=== PATIENT | male | born 1950 | race Caucasian/White ===

== ENCOUNTER → 2017-03-17 | Outpatient (CLI) | payer OTHER, MEDICARE | LOC: FIMAGING 08:00 | PROVIDERS: ATTEND Physician Assistant | DX: M51.36 Other intervertebral disc degeneration, lumbar region (principal); M12.88 Other specific arthropathies, not elsewhere classified, other specified site; M99.73 Connective tissue and disc stenosis of intervertebral foramina of lumbar region; M48.061 Spinal stenosis, lumbar region without neurogenic claudication; M51.26 Other intervertebral disc displacement, lumbar region; M48.02 Spinal stenosis, cervical region; M99.71 Connective tissue and disc stenosis of intervertebral foramina of cervical region; M89.38 Hypertrophy of bone, other site; M54.15 Radiculopathy, thoracolumbar region ==

== ENCOUNTER 2017-05-03 10:34 | Emergency (ER) | payer OTHER, MEDICARE ==
[2017-05-03 10:39] VITALS: RESP 18; TEMP 97.5; O2SAT 97
[2017-05-03] MEDS ORDERED: TDAP ADULT 0.5 ML INJ (BOOSTRIX) IM ONE (11:06)
--- NOTE | 2017-05-03 11:11 | EDPHY ---
H & P Stated Complaint: Fell on steps; hit head,?LOC; lac to L side of head;no neck pain Source: Patient Exam Limitations: No limitations - Personal History Current Tetanus Diphtheria and Acellular Pertussis (TDAP): Unsure - Medical/Surgical History Hx Asthma: No Hx Chronic Respiratory Disease: No Hx Diabetes: No Hx Cardiac Disease: No Hx Renal Disease: No Hx Cirrhosis: No Hx Alcoholism: No Hx HIV/AIDS: No Hx Splenectomy or Spleen Trauma: No Other PMH: laminectomy/l hand surgery/appy/Tonsilectomy - Social History Smoking Status: Never smoked Time Seen by Provider: 05/03/17 10:42 HPI/ROS: CHIEF COMPLAINT: Mechanical fall, head injury, laceration HISTORY OF PRESENT ILLNESS: The patient presents to the ED with complaints of a scalp injury and headache following a mechanical fall at home. There was unknown loss of consciousness. The patient is not anticoagulated but does complain of a severe left frontal headache. The patient denies any neck pain, chest pain, back pain or significant extremity pain. She did have a slight contusion to his right side. The patient has been ambulatory. He denies any focal numbness or weakness. The patient denies vomiting or additional complaints. REVIEW OF SYSTEMS: A comprehensive 10 point review of systems is otherwise negative aside from elements mentioned in the history of present illness. (Erik Reno) - Physical Exam Exam: General Appearance: Alert, no distress Head: Approximately 8 cm scalp laceration noted, scalp hematoma, bony tenderness without deformity Eyes: Pupils equal, round, reactive ENT, Mouth: No hemotympanum, no oral trauma Neck: Nontender, trachea midline Respiratory: No chest wall tender, subcutaneous air, lungs clear bilaterally Cardiovascular: Regular rate and rhythm Abdomen: Abdomen is soft and nontender, pelvis stable Skin: No lacerations, No abrasion Back: No midline T/L/S pain Extremities: Nontender, full range of motion Neurological: A&Ox3, normal motor function, normal sensory exam (Erik Reno) Constitutional: Initial Vital Signs Temperature (C) 36.4 C 05/03/17 10:35 Heart Rate 70 05/03/17 10:35 Respiratory Rate 18 05/03/17 10:35 Blood Pressure 105/70 05/03/17 10:35 O2 Sat (%) 97 05/03/17 10:35 O2 Delivery Mode Room Air Allergies/Adverse Reactions: No Known Allergies Allergy (Verified 05/03/17 10:35) Home Medications: Medication Instructions Recorded NK [No Known Home Meds] 05/03/17 Medical Decision Making - Diagnostics Imaging Results: Imaging Impressions Head CT 05/03/17 11:06 Impression: 1. There is a left parietal scalp laceration extending to the subgaleal space. 2. There is no acute intracranial abnormality identified on this unenhanced CT evaluation. If there is further clinical concern regarding the patient's symptoms, MR imaging is suggested, if not otherwise contraindicated. Findings were discussed with Erik Reno MD at 12:35, on 05/03/2017. Procedures: I was asked by Dr. Reno to repair scalp laceration. Laceration repair. Verbal consent was obtained from the patient. The 5 cm laceration on the left parietal scalp was anesthetized using 1% lidocaine with epinephrine. The wound was irrigated with saline, draped and explored to its base with a gloved finger. There were no deep structures involved. No laceration noted to the galea. The wound was repaired with 4 0 Vicryl, 4 sutures and 4 0 Prolene, 9 sutures. The wound repair was complex. The procedure was performed by myself. (Zenobia Sargent) ED Course/Re-evaluation: The patient presents to the ED after mechanical fall. The patient's GCS is 15 but does complain of a severe headache and is noted to have scalp tenderness. For this reason a CT scan of the head was ordered to evaluate for fracture or intracranial hemorrhage. Fortunately CT scan of the head demonstrates no evidence of intracranial hemorrhage or skull fracture. The patient's laceration was repaired under my supervision by the physician grooming assistant. Patient will be discharged home with customary closed head injury aftercare instructions and plans for suture removal in 10 days. (Erik Reno) Differential Diagnosis: Differential diagnosis considered includes intracranial hemorrhage, skull fracture, concussion, scalp laceration (Erik Reno) - Data Points Medications Given: Discontinued Medications Diphtheria/Tetanus/Acell Pertussis (Boostrix) 0.5 ml IM .ONCE ONE Stop: 05/03/17 11:07 Last Admin: 05/03/17 11:17 Dose: 0.5 ml Departure - Departure Disposition: Home, Routine, Self-Care Clinical Impression: Scalp laceration Qualifiers: Encounter type: initial encounter Qualified Code(s): S01.01XA - Laceration without foreign body of scalp, initial encounter Post-traumatic headache Qualifiers: Headache chronicity pattern: acute headache Intractability: not intractable Qualified Code(s): G44.319 - Acute post-traumatic headache, not intractable Condition: Good Instructions: Laceration (ED) Additional Instructions: 1. Tylenol and ibuprofen as needed for pain. 2. Return to the ED in 10 days for suture removal. 3. Please follow up with your primary care physician. Referrals: Dani Polk [Primary Care Provider] - As per Instructions
[2017-05-03 12:11] VITALS: BP 128/60; PULSE 69
== END 2017-05-03 13:18 | disposition home or self-care (01) ==
PROC: 0HQ0XZZ Repair Scalp Skin, External Approach (ICD-10-PCS; principal; 2017-05-03)
DX: S01.01XA Laceration without foreign body of scalp, initial encounter (principal); G44.319 Acute post-traumatic headache, not intractable; Z23 Encounter for immunization; W18.39XA Other fall on same level, initial encounter; Y92.009 Unspecified place in unspecified non-institutional (private) residence as the place of occurrence of the external cause

== ENCOUNTER 2017-07-12 08:07 | Emergency (ER) | payer OTHER, MEDICARE ==
--- NOTE | 2017-07-12 08:14 | EDPHY ---
H & P Stated Complaint: cervical neck issues/?sl numbness l face/head feels off dizzy Time Seen by Provider: 07/12/17 08:13 - Personal History Current Tetanus/Diphtheria Vaccine: Yes - Medical/Surgical History Hx Asthma: No Hx Chronic Respiratory Disease: No Hx Diabetes: No Hx Cardiac Disease: No Hx Renal Disease: No Hx Cirrhosis: No Hx Alcoholism: No Hx HIV/AIDS: No Hx Splenectomy or Spleen Trauma: No Other PMH: laminectomy/l hand surgery/appy/Tonsilectomy. cervical neck prob - Social History Smoking Status: Never smoked Constitutional: Initial Vital Signs Temperature (C) 36.3 C 07/12/17 08:10 Heart Rate 68 07/12/17 08:10 Respiratory Rate 18 07/12/17 08:10 Blood Pressure 132/83 H 07/12/17 08:10 O2 Sat (%) 98 07/12/17 08:10 O2 Delivery Mode Room Air Allergies/Adverse Reactions: No Known Allergies Allergy (Verified 07/12/17 08:09) Home Medications: Medication Instructions Recorded NK [No Known Home Meds] 05/03/17 Medical Decision Making - Diagnostics Imaging: Discussed imaging studies w/ call center receptionist Radiologist, I viewed and interpreted images myself ED Course/Re-evaluation: CHIEF COMPLAINT: Dizziness HISTORY OF PRESENT ILLNESS: The patient is a 66 y/o male with known cervical disc herniations complaining of dizziness. In April, 2 months ago, he tripped down 6 stairs and struck his head causing a scalp laceration, but no intracranial injury on CT. About one week ago he developed worsening neck pain so severe he's had difficulty walking and scheduled an appointment with [facility] for this morning. This morning after eating breakfast he stood up and felt abruptly dizzy and off-balance like the room was spinning. This lasted for a few minutes and temporarily resolved upon sitting down. Symptoms recurred when standing and walking so he came to the ED for evaluation. While lying in the bed here, he feels nearly back to baseline and is able to turn his head side-to- side and look around the room without eliciting symptoms. He feels symptoms would return if he tried to walk. He denies weakness, paresthesias, speech difficulty, headache, recent illness, recent trauma. REVIEW OF SYSTEMS: A 10 point review of systems was performed and is negative with the exception of the elements mentioned in the history of present illness. PHYSICAL EXAM: HR, BP, O2 Sat, RR. Temp noted General Appearance: Alert, well hydrated, appropriate, and non-toxic appearing. Head: Atraumatic without scalp tenderness or obvious injury Eyes: Pupils equal, round, reactive to light and accommodation, EOMI, no trauma , no injection. Ears: Clear bilaterally, no perforation, normal landmarks Nose: Atraumatic, no rhinorrhea, clear. Throat: Mucus membranes moist. Neck: Supple, nontender, no lymphadenopathy. Respiratory: No retractions, no distress, no wheezes, and no accessory muscle use. Lungs are clear to auscultation bilaterally. Cardiovascular: Regular rate and rhythm, no murmurs, rubs, or gallops. Good capillary refill all extremities. Gastrointestinal: Abdomen is soft, nontender, non-distended, no masses, no rebound, no guarding, no peritoneal signs. Musculoskeletal: Normal active ROM of all extremities, atraumatic. Neurological: Alert, appropriate, and interactive. The patient has non-focal cranial nerves, motor, sensory, and cerebellar exam. Normal gait. Skin: No rashes, good turgor, no nodules on palpation. Past medical history: Cervical spine herniations Past surgical history: laminectomy, left hand surgery, appendectomy, tonsillectomy Family history: Noncontributory Social history: . Lives in [place]. DIAGNOSTICS/PROCEDURES/CRITICAL CARE TIME: The 12 lead EKG was interpreted by myself. Sinus mechanism. See hard copy and/ or "tracemaster" electronic copy for interpretation. Brain MRI: negative for acute process. DIFFERENTIAL DIAGNOSIS: The differential diagnosis for the patient's dizziness included but was not limited to peripheral and central causes of vertigo, orthostatic causes including dehydration, cardiogenic and neurogenic causes, and blood loss. MEDICAL DECISION MAKING: This is a 66 y/o male with a history of cervical disc herniations and recent head injury 2 months ago who presents with acute onset dizziness upon standing up from breakfast this morning. Symptoms are aggravated by standing and walking , but extinguish while lying down or sitting even with moving his head and looking around. His gait was normal and his neuro exam is non-focal here. Suspect benign positional vertigo. Plan for brain MRI to rule out chronic subdural or cerebellar stroke. MRI is negative for acute process. Reevaluated patient and discussed findings. Exam remains nonfocal. He will be discharged with standard vertigo care and follow up instructions. Return precautions discussed. He is comfortable with this plan. - Data Points Laboratory Results: Laboratory Results 07/12/17 08:30 07/12/17 08:30 07/12/17 07/12/17 08:30 08:30 WBC 4.73 10^3/uL 10^3/uL (3.80-9.50) RBC 5.39 10^6/uL 10^6/uL (4.40-6.38) Hgb 15.9 g/dL g/dL (13.7-17.5) Hct 47.5 % % (40.0-51.0) MCV 88.1 fL fL (81.5-99.8) MCH 29.5 pg pg (27.9-34.1) MCHC 33.5 g/dL g/dL (32.4-36.7) RDW 13.3 % % (11.5-15.2) Plt Count 163 10^3/uL 10^3/uL (150-400) MPV 10.1 fL fL (8.7-11.7) Neut % (Auto) 63.0 % % (39.3-74.2) Lymph % (Auto) 25.4 % % (15.0-45.0) [place] % (Auto) 8.0 % % (4.5-13.0) Eos % (Auto) 3.2 % % (0.6-7.6) Baso % (Auto) 0.2 % L % (0.3-1.7) Nucleat RBC Rel Count 0.0 % % (0.0-0.2) Absolute Neuts (auto) 2.98 10^3/uL 10^3/uL (1.70-6.50) Absolute Lymphs (auto) 1.20 10^3/uL 10^3/uL (1.00-3.00) Absolute Monos (auto) 0.38 10^3/uL 10^3/uL (0.30-0.80) Absolute Eos (auto) 0.15 10^3/uL 10^3/uL (0.03-0.40) Absolute Basos (auto) 0.01 10^3/uL L 10^3/uL (0.02-0.10) Absolute Nucleated RBC 0.00 10^3/uL 10^3/uL (0-0.01) Immature Gran % 0.2 % % (0.0-1.1) Immature Gran # 0.01 10^3/uL 10^3/uL (0.00-0.10) Sodium 142 mEq/L mEq/L (135-145) Potassium 4.4 mEq/L mEq/L (3.3-5.0) Chloride 105 mEq/L mEq/L (97-110) Carbon Dioxide 24 mEq/l mEq/l (22-31) Anion Gap 13 mEq/L mEq/L (8-16) BUN 22 mg/dL mg/dL (7-23) Creatinine 1.1 mg/dL mg/dL (0.7-1.3) Estimated GFR > 60 Glucose 95 mg/dL mg/dL (70-100) Calcium 9.1 mg/dL mg/dL (8.5-10.4) Departure - Departure Disposition: [facility] Inpatient Acute Clinical Impression: Benign positional vertigo Qualifiers: Laterality: unspecified laterality Qualified Code(s): H81.10 - Benign paroxysmal vertigo, unspecified ear Condition: Good Instructions: Vertigo (ED) Additional Instructions: Follow up with ENT for unimproved symptoms over the next 2-3 days. Return to the ED for severe headache, weakness or numbness on one side of your body, speech difficulty, or other worsening of condition. Referrals: Andrés El MD [Medical Doctor] - As per Instructions Report Scribed for: Krishna Busch Report Scribed by: Tianna Blount Date of Report: 07/12/17 Time of Report: 09:18
--- NOTE | 2017-07-12 08:20 | CPEKG ---
Heart Rate: 60 RR Interval: 1000 P-R Interval: 192 QRSD Interval: 96 QT Interval: 408 QTC Interval: 408 P [place]: 79 QRS [place]: 56 T Wave [place]: 47 EKG Severity - NORMAL ECG - EKG Impression: SINUS RHYTHM Electronically Signed By: Krishna Busch 12-Jul-2017 11:07:22
[2017-07-12 08:39] LABS: PLATELET COUNT 163 10^3/uL (150-400)
[2017-07-12 11:03] VITALS: BP 114/75
== END 2017-07-12 11:02 | disposition still patient (30) ==
DX: H81.10 Benign paroxysmal vertigo, unspecified ear (principal)

== ENCOUNTER → 2017-08-27 | Outpatient (CLI) | payer OTHER, MEDICARE | LOC: FIMAGING 08:20 | PROVIDERS: ATTEND Neurological Surgery | DX: M43.12 Spondylolisthesis, cervical region (principal) ==

== ENCOUNTER → 2017-08-27 | Outpatient (CLI) | payer OTHER, MEDICARE | LOC: FIMAGING 08:28 | PROVIDERS: ATTEND Physician Assistant | DX: M54.12 Radiculopathy, cervical region (principal); M50.30 Other cervical disc degeneration, unspecified cervical region ==

== ENCOUNTER → 2017-11-15 | Outpatient (CLI) | payer OTHER, MEDICARE | LOC: FIMAGING 10:16 | PROVIDERS: ATTEND Physician Assistant | DX: Z09 Encounter for follow-up examination after completed treatment for conditions other than malignant neoplasm (principal); M89.38 Hypertrophy of bone, other site; M25.78 Osteophyte, vertebrae; Z98.1 Arthrodesis status ==

== ENCOUNTER → 2018-03-15 | Outpatient (CLI) | payer OTHER, MEDICARE | LOC: FLAB 08:03 | PROVIDERS: ATTEND Physician Assistant | DX: Z98.1 Arthrodesis status (principal) ==